=== PATIENT | female | born 2000 | race Hispanic/Latino ===

== ENCOUNTER 2021-06-15 08:23 | Emergency (ER) | payer OTHER ==
[~2021-06-15] VITALS: Ht 157.5 cm; Wt 83.2 kg
[2021-06-15 10:34] LABS: BASO # 0.1 10^3/uL (0.0-0.2); BASO % 0.8 % (0.0-1.0); EOS # 0.1 10^3/uL (0.0-0.5); EOS % 1.4 % (0.0-3.0); HEMOGLOBIN 13.4 g/dl (12.0-15.5); LYMPH # 2.7 10^3/uL (1.5-5.0); LYMPH % 37.6 % (24.0-44.0); MEAN CORPUSCULAR HGB CONC 32.7 g/dl (32.0-36.5); MEAN CORPUSCULAR VOLUME 91.7 fl (80.0-96.0); MONO # 0.6 10^3/uL (0.0-0.8); MONO % 8.2 % (2.0-8.0); NEUTROPHILS # 3.7 10^3/uL (1.5-8.5); NEUTROPHILS % 51.7 % (36.0-66.0); PLATELET COUNT, AUTOMATED 319 10^3/uL (150-450); RED BLOOD COUNT 4.47 10^6/uL (4.00-5.40); WHITE BLOOD COUNT 7.1 10^3/uL (4.0-10.0)
[2021-06-15] MEDS ORDERED: ONDANSETRON 4MG/2ML VIAL IV ONE (10:50)
[2021-06-15] MEDS ORDERED: GI COCKTAIL 50ML BTL(HYOSCYAMINE/MAALOX/LIDOCAINE VISCOUS)(1:3:1) PO ONE (10:50)
[2021-06-15 10:54] LABS: ALBUMIN 3.9 GM/DL (3.2-5.2); BILIRUBIN,DIRECT 0.2 MG/DL (0.0-0.2); BILIRUBIN,TOTAL 0.8 MG/DL (0.2-1.0); TOTAL PROTEIN 7.1 GM/DL (6.4-8.2)
[2021-06-15] MEDS ORDERED: ORTH1TAB8 PO (11:17)
[2021-06-15] MEDS ORDERED: ONDA4TAB6 PO (11:17)
[2021-06-15] MEDS ORDERED: BACT800T5 PO (11:18)
[2021-06-15 11:28] VITALS: BP 122/66
== END 2021-06-15 11:29 | disposition home or self-care (01) ==
LOC: M ED 08:23
DX: N39.0 Urinary tract infection, site not specified (principal); R11.2 Nausea with vomiting, unspecified; Z76.0 Encounter for issue of repeat prescription; Z79.3 Long term (current) use of hormonal contraceptives
CPT/HCPCS: 80047; 80076; 81001; 83690; 84702; 85025; 87088; 87186; 96374; 99284; J2405

== ENCOUNTER 2021-11-07 15:29 | Emergency (ER) | payer OTHER ==
[~2021-11-07] VITALS: Ht 157.5 cm; Wt 68.2 kg
[~2021-11-07 15:29] MED LIST: BACT800T5 PO; ONDA4TAB6 PO; ORTH1TAB8 PO
[2021-11-07 17:37] LABS: RSV AMPLIFICATION NEGATIVE (NEGATIVE)
[2021-11-07] MEDS ORDERED: KETOROLAC 30 MG/ML 1ML VIAL IV ONE (19:00)
[2021-11-07] MEDS ORDERED: NS 1,000 ML IV ONE (19:00)
[2021-11-07] MEDS ORDERED: METOCLOPRAMIDE INJ 10MG/2ML VIAL (J2765 PER 1) IV ONE (19:00)
[2021-11-07] MEDS ORDERED: ONDA4TAB6 PO (20:44)
[2021-11-07 20:51] VITALS: BP 116/79
== END 2021-11-07 21:21 | disposition home or self-care (01) ==
LOC: M ED 15:29
DX: U07.1 COVID-19 (principal); R50.9 Fever, unspecified; R51.9 Headache, unspecified; F17.200 Nicotine dependence, unspecified, uncomplicated
CPT/HCPCS: 84702; 87631; 96361; 96374; 96375; 99284; J1885; J2765

== ENCOUNTER 2022-01-15 20:26 | Emergency (ER) | payer OTHER ==
[~2022-01-15] VITALS: Ht 157.5 cm; Wt 89.0 kg
[2022-01-15 20:26] VITALS: BP 124/93
[2022-01-15] MEDS ORDERED: CEPHALEXIN 500 MG CAP PO ONE (23:40)
== END 2022-01-15 23:52 | disposition home or self-care (01) ==
LOC: M ED 20:26
DX: J02.9 Acute pharyngitis, unspecified (principal)